=== PATIENT | female | born 1990 | race Caucasian/White ===

== ENCOUNTER 2018-05-14 17:05 | Emergency (ER) | payer BC ==
[2018-05-14 17:22] VITALS: BP 132/82
--- NOTE | 2018-05-14 17:38 | UC ---
Nausea/Vomiting/Diarrhea HPI - HPI Summary HPI Summary: 27 year old female presents with sudden onset of body aches, chills, and watery diarrhea this morning. States she had multiple episodes of watery diarrhea. States has not had any episodes in about 4-5 hours. Denies fever, weakness, dizziness, URI symptoms, chest pain, palpitations, shortness of breath, cough, abdominal pain, nausea, vomiting, dysuria, frequency, urgency, consumption of raw or undercooked meat or seafood, or recent travel out of the country or antibioitic use. - History of Current Complaint Chief Complaint: UCGeneralIllness Stated Complaint: BODY ACHES/DIARRHEA Time Seen by Provider: 05/14/18 17:15 Hx Obtained From: Patient Hx Last Menstrual Period: unknown, oral contraceptive Pain Intensity: 4 - Allergies/Home Medications Allergies/Adverse Reactions: Allergies Allergy/AdvReac Type Severity Reaction Status Date / Time No Known Allergies Allergy Verified 05/14/18 17:19 Home Medications: Home Medications Ethinyl Estradiol/Drospirenone [Krystal 28 Tablet] 1 each PO DAILY 05/14/18 [ History Confirmed 05/14/18] PMH/Surg Hx/FS Hx/Imm Hx Previously Healthy: Yes - Denies significant PMH - Surgical History Surgical History: None - Social History Occupation: Employed Full-time Lives: Alone Alcohol Use: Rare Substance Use Type: None Smoking Status (MU): Never Smoked Tobacco Review of Systems All Other Systems Reviewed And Are Negative: Yes Constitutional: Positive: Chills, Fatigue. Negative: Fever Skin: Negative: Rash Eyes: Negative: Drainage, Eye Redness ENT: Negative: Sore Throat, Ear Ache, Nasal Discharge, Sinus Congestion, Sinus Pain/Tenderness Respiratory: Negative: Shortness Of Breath, Cough Cardiovascular: Negative: Palpitations, Chest Pain Gastrointestinal: Positive: Diarrhea. Negative: Abdominal Pain, Vomiting, Nausea Genitourinary: Negative: Dysuria, Frequency, Urgency Musculoskeletal: Positive: Negative Neurological: Positive: Negative Is Patient Immunocompromised?: No Physical Exam - Summary Physical Exam Summary: GENERAL APPEARANCE: Well developed, well nourished, alert and cooperative, and appears to be in no acute distress. EYES: Conjunctiva clear. No drainage. Vision is grossly intact. EARS: External auditory canals and tympanic membranes clear, hearing grossly intact. NOSE: No nasal discharge. THROAT: Oral cavity and pharynx normal. No inflammation, swelling, exudate, or lesions. Teeth and gingiva in good general condition. NECK: Neck supple, non-tender without lymphadenopathy. CARDIAC: Normal S1 and S2. No S3, S4 or murmurs. Rhythm is regular. There is no peripheral edema, cyanosis or pallor. Extremities are warm and well perfused. Capillary refill is less than 2 seconds. LUNGS: Clear to auscultation without rales, rhonchi, wheezing or diminished breath sounds. ABDOMEN: Positive bowel sounds. Soft, nondistended, nontender. No guarding or rebound. No masses or hepatosplenomegally. No CVA tenderness. MUSKULOSKELETAL: ROM intact to all extremities. No joint erythema or tenderness. Normal muscular development. Normal gait. SKIN: Skin normal color, texture and turgor with no lesions or eruptions. Triage Information Reviewed: Yes Vital Signs: Initial Vital Signs Temp 98.8 F 05/14/18 17: Pulse 80 05/14/18 17:19 Resp 14 05/14/18 17: BP 132/82 05/14/18 17: Pulse Ox 100 05/14/18 17:19 Vital Signs Reviewed: Yes Diagnostics - Laboratory Diagnostic Studies Completed/Ordered: Rapid flu negative Naus/Vom/Diarrhea Course/Dx - Course Course Of Treatment: 27 year old female presents with sudden onset of body aches , chills, and watery diarrhea this morning. States she had multiple episodes of watery diarrhea. States has not had any episodes in about 4-5 hours. Denies fever, weakness, dizziness, URI symptoms, chest pain, palpitations, shortness of breath, cough, abdominal pain, nausea, vomiting, dysuria, frequency, urgency , consumption of raw or undercooked meat or seafood, or recent travel out of the country or antibioitic use. Afebrile. VSS. Exam reveals adult female in no acute distress. Exam unremarkable. Rapid flu negative. Recommend symptomatic treatment for acute diarrhea. She is to follow up here or with PCP in 3-5 days if symptoms persist. Warning symptoms were reviewed with patient. Verbalizes understanding and agrees with POC. - Differential Dx/Diagnosis Differential Diagnoses - Female: Appendicitis, Diverticulitis, Irritable Bowel Syndrome, Diverticulosis, Gastroenteritis (Viral), Gastroenteritis (Bacterial), Diarrhea, Other - Influenza Provider Diagnosis: Diarrhea Condition At Discharge: Stable Discharge - Sign-Out/Discharge Documenting (check all that apply): Patient Departure All imaging exams completed and their final reports reviewed: No Studies - Discharge Plan Condition: Stable Disposition: HOME Patient Education Materials: Acute Diarrhea (ED) Referrals: No Primary Care Phys,NOPCP [Primary Care Provider] - Additional Instructions: Acute diarrhea typically resolves on its own without treatment over 2-3 days. The most important consideration with diarrhea is avoiding dehydration. Be sure to drink plenty of fluids. Avoid beverages containing caffeine or artificial sweeteners as these can worsen symptoms. Be sure to eat a well balanced diet. Boiled starches and cereals (potatoes, rice , cream of wheat, oatmeal) as well as food such as crackers, toast, bananas, soups and boiled vegetables are usually recommended if you are having watery diarrhea. Be sure to use good hand hygiene to prevent spreading infection. Use an over the counter pain medication such as acetaminophen (Tylenol) or ibuprofen (Advil, Motrin) according to directions as needed for aches and pains. Return here or follow up with your primary care provider in 3-5 days if symptoms persist. Seek immediate medical attention in the emergency room if you have fever greater than 100.5 F, have severe abdominal pain, persistent vomiting, blood in your vomit or stool, you become weak or dizzy, or have any worsening of symptoms. - Billing Disposition and Condition Condition: STABLE Disposition: Home
== END 2018-05-14 18:04 | disposition home or self-care (01) ==
LOC: UCCORT 17:05
DX: R19.7 Diarrhea, unspecified (principal)
CPT/HCPCS: 99202; G0463